=== PATIENT | male | born 1955 | race Caucasian/White ===

== ENCOUNTER 2021-06-27 13:16 | Emergency (ER) | payer OTHER, SELFPAY ==
--- NOTE | 2021-06-27 14:11 | XR_ITS ---
WS: [id number] Exam: XR hand RT min 3V* [id number] Date/Time of Exam: 06/27/2021 2:13 PM Reason For Exam: finger injury No fracture or dislocation. Soft tissues are unremarkable. Mild DJD at the CMC joint of the thumb. XR/XR hand RT min 3V* [id number] IMPRESSION: 1. No fracture or dislocation noted. 2. Small ossified density seen in the soft tissues along the dorsal margin of t he PIP joint of the index finger. This does not have the appearance of an acute fracture.
[2021-06-27 15:06] VITALS: BP 145/84; PULSE 51; RESP 14; TEMP 36.6; O2SAT 98; BMI 22.1
--- NOTE | 2021-06-27 15:28 | ED_ITS ---
HPI - Extremity Problem General: Chief complaint: Extremity Injury, Upper Stated complaint: Smashed finger on right hand, sent by [facility] Time Seen by Provider: 06/27/21 15:15 History of Present Illness: Patient is a 66-year-old male comes to the ED with a finger injury. Injury occurred over 2 days ago. 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 He has some swelling at the distal end of third digit with subungual hematoma. Pain rated a 6 out of 10. Associated symptoms: Deny chest pain, fever(s) or rash Review of Systems Const: Denies: fever(s), chills or fatigue Eyes: Denies: change in vision or eye discomfort ENMT: Denies: throat pain, odynophagia, nasal discharge or nasal congestion Card: Denies: chest pain, palpitations, edema, swelling of feet/ankles, dyspnea on exertion or orthopnea Resp: Denies: dyspnea, productive cough or non-productive cough GI: Denies: abdominal pain, nausea, vomiting, diarrhea, constipation or hematochezia : Denies: flank pain, difficulty urinating, dysuria or hematuria Musc: Reports: extremity pain (right hand-third digit) and extremity swelling (Right hand-third digit.); Denies: neck pain or back pain Skin/Breast: Denies: rash or new lesions Neuro: Denies: headache(s) PFS ED PFSH: Medical History No pertinent family history Surgical History No pertinent past surgical history Physical Exam Const: COMMON NORMALS: no acute distress, patient oriented x3, healthy appearing and alert GENERAL APPEARANCE: cooperative and comfortable HENMT: COMMON NORMALS: normocephalic HEAD & SCALP: normocephalic MOUTH: Normal oral and palatal mucosa present THROAT: posterior oropharynx normal and uvula midline Neck/C-Spine: COMMON NORMALS: supple GENERAL: Yes normal visual inspection Resp: COMMON NORMALS: normal respiratory effort, No retractions, No use of accessory muscles and clear to auscultation bilaterally AUSCULTATION: clear to auscultation bilaterally Cardio: COMMON NORMALS: regular rate, regular rhythm, S1 normal heart sound present, S2 normal heart sound present, No gallops present (Cardio), No clicks present (Cardio), No murmurs present (Cardio) and Peripheral pulses 2+ throughout RATE: regular rate RHYTHM: regular rhythm HEART SOUNDS: S1 normal heart sound present and S2 normal heart sound present PERIPHERAL PULSES: Peripheral pulses 2+ throughout GI: COMMON NORMALS: Normal to inspection, nondistended, normoactive bowel sounds present, Soft to palpation, non-tender and no masses PALPATION: Yes Soft to palpation : COMMON NORMALS: Yes no CVA tenderness BLADDER/KIDNEY EXAM: Yes no CVA tenderness Back/Pelvis: COMMON NORMALS: no CVA tenderness Extremity: NARRATIVE EXTREMITY EXAM: Right hand?third digit subungual hematoma noted. Some swelling of distal phalanx and with tenderness to palpation. No visible deformity seen. No laceration noted. Neuro: COMMON NORMALS: patient oriented x3 SENSORIUM/ORIENTATION: Yes alert Skin: GENERAL SKIN EXAM: dry skin Course Vital Signs: Vital signs: Vital Signs Temperature 97.9 F 06/27/21 15:06 Pulse Rate 51 L 06/27/21 15:06 Respiratory Rate 14 06/27/21 15:06 Blood Pressure 145/84 06/27/21 15:06 Pulse Oximetry 98 06/27/21 15:06 MDM - Extremity (Nontraumatic) Medical Decision Making Patient is a 66-year-old male that comes to the ED with right hand third digit injury. The distal end of his finger was smashed in a gate. Injury occurred over 48 hours ago. Vital stable. Patient has a subungual hematoma of the third digit. No laceration or deformity of the distal end of third digit seen. X-ray of right hand showed no acute fractures or dislocation seen. Patient was diagnosed with a subungual hematoma of the finger. Due to injury occurring over 48 hours ago, drainage was not performed. He was discharged home and told to follow-up with his PCP in the next 7 to 10 days for reevaluation. Return to ED precautions given. Patient understood and agreed with plan. Lab Data Radiology Impressions Hand X-Ray 06/27/21 14:11 IMPRESSION: 1. No fracture or dislocation noted. 2. Small ossified density seen in the soft tissues along the dorsal margin of the PIP joint of the index finger. This does not have the appearance of an acute fracture. Discharge Plan Discharge Patient Disposition: Home Clinical Impression: Subungual hematoma of finger Qualifiers: Encounter type: initial encounter Qualified Code(s): S60.10XA - Contusion of unspecified finger with damage to nail, initial encounter Condition: Stable Discharge Orders: Discharge ED (Routine); Ordered 06/27/21 Ordered By: Alejandro Tony Discharge Diet: Regular Discharge Activity: Increase activity as tolerated Patient Instructions: Subungual Hematoma (ED) Activity Restrictions/Additional Instructions: Follow-up with medical provider as directed in the next 5 to 7 days for evaluation. Apply cold pack on finger to help with swelling and symptoms. Take [id number] ibuprofen up to 800 mg dose every 8 hours as needed for pain and inflammation. Return to the ER or your medical provider if condition worsens. Please read and understand discharge instructions. Thank you for choosing [facility] for your healthcare needs today. Please realize this is an emergency room and that we are providing you with a medical screening exam and this may not be complete and all inclusive of all the testing and or work up that you may need to determine your ailment or severity of your illness. It is very important that you follow up as instructed or that you return to the Emergency Department should you have concerns or if your condition changes or worsens in any way. Coding Level of Care Code ED Attendant [facility] for Jenna Guajardo Exam Comprehensive
== END 2021-06-27 15:51 | disposition home or self-care (01) ==
PROVIDERS: Emergency Provider Physician Assistant
DX: S60.131A Contusion of right middle finger with damage to nail, initial encounter (principal); W23.0XXA Caught, crushed, jammed, or pinched between moving objects, initial encounter
CPT/HCPCS: 73130; 99282